=== PATIENT | female | born 1945 | race African-American/Black ===

== ENCOUNTER 2024-10-28 13:56 | Outpatient (CLI) | payer MEDICARE ==
[2024-10-28 14:56] LABS: #Basophils Less than 0.03 10x3/uL (0.0-0.2); #Eosinophils Less than 0.03 10x3/uL (0.0-0.7); #Monocytes 0.64 10x3/uL (0.11-0.59); #Neutrophils 4.23 10x3/uL (1.40-6.50); %Basophils 0.3 % (0.0-1.0); %Eosinophils 0.0 % (0.0-10.0); %Lymphocytes 21.5 % (21.0-51.0); %Monocytes 10.1 % (0.0-10.0); %Neutrophils 66.7 % (42.0-75.0); Hematocrit 30.5 % (36.0-47.0); Hemoglobin 9.9 g/dL (12.0-16.0); Mean Corpuscular Hemoglobin 31.4 pg (27.0-31.0); Mean Corpuscular Volume 96.8 fL (78.0-98.0); Platelet Count 137 10x3/uL (130-400); Red Blood Cell (RBC) Count 3.15 mill/uL (4.20-5.40); White Blood Cell (WBC) Count 6.34 10x3/uL (4.8-10.8)
[2024-10-28 15:03] LABS: INR-International Normal Ratio 1.0; Prothrombin Time 13.3 sec (12.0-14.7)
[2024-10-28 15:04] LABS: PTT 30.5 sec (22.9-36.1)
[2024-10-28 15:25] LABS: Anion Gap 18 mmol/L (10-20); BUN (Urea Nitrogen) 49 mg/dL (9.8-20.1); Calc. Creatinine Clearance 0 mL/min (70-130); Calcium 8.6 mg/dL (7.8-10.44); Carbon Dioxide 22 mmol/L (23-31); Chloride 94 mmol/L (98-107); Glucose 118 mg/dL (83-110); Potassium 3.9 mmol/L (3.5-5.1); Sodium 130 mmol/L (136-145)
== END 2024-10-28 13:57 | disposition home or self-care (01) ==
LOC: LABBT 13:56
PROVIDERS: ATTEND Surgery
DX: Z01.818 Encounter for other preprocedural examination (principal); N18.6 End stage renal disease; I50.9 Heart failure, unspecified
CPT/HCPCS: 71046; 80048; 85025; 85610; 85730; 93005; 93010

== ENCOUNTER 2024-10-30 06:13 | Day surgery (SDC) | payer MEDICARE ==
[2024-10-28 14:12] VITALS: BMI 38.0
[2024-10-30] MEDS ORDERED: Heparin 5,000 UNITS/ML VIAL ONE (06:54)
[2024-10-30] MEDS ORDERED: Bupivacaine 0.25% HCL 30 ML VIAL ONE (06:55)
[2024-10-30 07:15] LABS: Potassium 4.0 mmol/L (3.5-5.1)
[2024-10-30] MEDS ORDERED: Lidocaine 1% PF 5 ML VIAL ONE (07:20)
[2024-10-30] MEDS ORDERED: PROPOFOL 20 ML ONE (07:20)
[2024-10-30] MEDS ORDERED: Ondansetron PF 4 MG/2 ML Vial ONE ×2 (07:38→12:58)
[2024-10-30] MEDS ORDERED: PHENYLEPHRINE-NS 100 MCG/ML 10 ML SYRINGE ONE (07:38)
[2024-10-30] MEDS ORDERED: SUCCINYLCHOLINE/SOD CL,ISO/PF 200 MG/10 ML SYRINGE FS ONE (07:38)
[2024-10-30] MEDS ORDERED: CEFAZOLIN 1 GM VIAL ONE ×2 (07:47→12:43)
[2024-10-30] MEDS ORDERED: Heparin 10,000 UNITS/ 10 ML VIAL ONE (08:41)
[2024-10-30] MEDS ORDERED: Sucroferric Oxyhydroxide [Velphoro] 500 MG Tab.Chew PO SCH (12:00)
[2024-10-30] MEDS ORDERED: fentaNYL PF 100 MCG/2 ML SYRINGE ONE (12:50)
[2024-10-30] MEDS ORDERED: Carvedilol 3.125 MG TAB PO SCH (21:00)
[2024-10-31] MEDS ORDERED: Amiodarone 200 MG TAB PO SCH (09:00)
[2024-10-31] MEDS ORDERED: Losartan 25 MG TAB PO SCH (09:00)
[2024-10-31] MEDS ORDERED: Calcitriol 0.25 MCG CAP PO SCH (09:00)
[2024-10-31] MEDS ORDERED: Pantoprazole 40 MG DR.TAB PO SCH (09:00)
[2024-10-31] MEDS ORDERED: Aspirin Chewable 81 MG TAB PO SCH (09:00)
== END 2024-10-30 12:25 | disposition home or self-care (01) ==
LOC: SDC 06:13
PROVIDERS: ATTEND Surgery
PROC: 03180JD Bypass Left Brachial Artery to Upper Arm Vein with Synthetic Substitute, Open Approach (ICD-10-PCS; principal; 2024-10-30)
DX: I13.2 Hypertensive heart and chronic kidney disease with heart failure and with stage 5 chronic kidney disease, or end stage renal disease (principal); N18.6 End stage renal disease; I50.9 Heart failure, unspecified; E78.5 Hyperlipidemia, unspecified; Z79.899 Other long term (current) drug therapy
CPT/HCPCS: 36830; 84132; C1713; J0169; J0665; J0690; J1100; J1644 ×3; J2405; J2704; J2720; J3010; J3373; 36416